=== PATIENT | female | born 1965 | race Caucasian/White ===

== ENCOUNTER 2017-06-18 13:25 | Emergency (ER) | payer MEDICARE, MEDICAID ==
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
== END 2017-06-18 14:40 | disposition home or self-care (01) ==
LOC: JP.ED 13:25
DX: R22.0 Localized swelling, mass and lump, head (principal); F17.210 Nicotine dependence, cigarettes, uncomplicated; J44.9 Chronic obstructive pulmonary disease, unspecified; K21.9 Gastro-esophageal reflux disease without esophagitis; Z79.899 Other long term (current) drug therapy
CPT/HCPCS: 99284

== ENCOUNTER 2018-02-20 06:59 | Emergency (ER) | payer MEDICARE, MEDICAID ==
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
== END 2018-02-20 07:43 | disposition home or self-care (01) ==
LOC: JP.ED 06:59
DX: S80.862A Insect bite (nonvenomous), left lower leg, initial encounter (principal); L08.9 Local infection of the skin and subcutaneous tissue, unspecified; J44.9 Chronic obstructive pulmonary disease, unspecified; F17.210 Nicotine dependence, cigarettes, uncomplicated; Z79.899 Other long term (current) drug therapy; W57.XXXA Bitten or stung by nonvenomous insect and other nonvenomous arthropods, initial encounter
CPT/HCPCS: 99283